=== PATIENT | female | born 1985 | race Caucasian/White ===

== ENCOUNTER 2023-03-17 14:50 | Outpatient (AMB) | payer MEDICAID, SELFPAY ==
--- NOTE | 2023-03-17 15:37 | MHC.OFFVIS ---
Intake Vital Signs 03/17/23 15:40 03/17/23 16:25 Height 5 ft Weight 145 lb BMI 28.3 BP 192/126 H 222/132 H Intake Visit Reasons: IUD check Intake Note: The patient agreed to use of a medical records manager during this encounter. Scribed for CARLINE Negro by Lorenza Underwood medical records manager, on 03/17/2023 at 4:00 pm EST Answering Service Agent: Answering Service Agent Present (Laura) Allergies No Known Allergies Allergy (Verified 03/17/23 15:37) HPI HPI Comments History of Present Illness Details She presents for IUD check. Reports after intercourse 2 weeks ago, she felt the IUD moved. Uncertain where IUD was inserted, seen at the [facility] for branch account executive care. Her partner states he can no longer feel the strings. Admits to pelvic pain after that episode. Took home HCG test, negative. Last annual 2 years ago at [facility] per patient. 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 Elevated BP today. Hx of HTN after COVID vaccine, was on meds for 6 months. [facility] Medical History Juvenile arthritis Asthma Surgical History H/O hemorrhoidectomy Family History Maternal Aunt Brain cancer Social History Alcohol intake: current Alcohol intake frequency: holidays/special occasions only Patient Tobacco Use Status: Current everyday Tobacco user Cigarettes Per Day: 10 Sexual orientation: Straight/Heterosexual Gender identity: Female Female Reproductive History Menstrual control method: progestin IUCD Total pregnancies: 4 Full term: 2 Number of Living Children: 2 Ab induced: 1 Ab spontaneous: 1 Review of Systems Const All systems reviewed & are unremarkable except as noted in HPI and below Reports pelvic pain Physical Exam Vital Signs: Last Vital Signs BP 222/132 H 03/17/23 16:25 BMI result Body Mass Index 28.3 Const General: cooperative, no acute distress, well developed and alert External Female Exam: normal external appearance Speculum Exam - Vagina: normal appearance of the vagina Speculum Exam - Cervix: normal appearance of the cervix (IUD strings visible. clear mucous at os) Bimanual exam- vagina & uterus: normal bimanual exam, uterine size normal, uterine shape normal and non-tender Bimanual Exam- Adnexa, other: normal adnexae, no masses and tender on the left Results AMB Test Urine AMB Test Urine Negative Last Edit by MARISOL Bass on 03/17/23 16:25 Results Reviewed Results Reviewed: Laboratory Last Values Tst Clinic Negative 03/17/23 16:21 Assessment & Plan Assessment & Plan (1) Surveillance for control, intrauterine device: Code(s): Z30.431 - Encounter for routine checking of intrauterine contraceptive device Plan: BV panel, GC/CT done today. Urine HCG done today. Will await results and treat accordingly. Follow up US results in person. [employer] records request from [facility]. Contact office with any questions or concerns. (2) Pelvic pain in female: Code(s): R10.2 - Pelvic and perineal pain (3) Elevated blood pressure reading: Code(s): R03.0 - Elevated blood-pressure reading, without diagnosis of hypertension Plan: Instructed to go to ED for further evaluation due to high blood pressure, concern for stroke risks, she was escorted by staff member via wheelchair. Orders: Orders AMB HCG Urine Test Today Z32.02 - Encounter for test, result negative US pelvic and transvaginal Today R10.2 - Pelvic and perineal pain, Z30.431 - Encounter for routine checking of intrauterine contraceptive device Bacterial Vaginosis Panel Today R10.2 - Pelvic and perineal pain CT NG by PCR Today R10.2 - Pelvic and perineal pain Pap Smear Today R10.2 - Pelvic and perineal pain Coding Level of Care Code Est Pt Level 3 (05460) Diagnoses Surveillance for control, intrauterine device Z30.431 Pelvic pain in female R10.2 Elevated blood pressure reading R03.0
[2023-03-17 15:40] VITALS: BP 192/126; BMI 28.3
[2023-03-17 16:25] VITALS: BP 222/132
== END 2023-03-17 14:51 | disposition home or self-care (01) ==
PROVIDERS: PCP Internal Medicine; Visit Provider Advanced Practice Midwife
DX: Z30.431 Encounter for routine checking of intrauterine contraceptive device (principal); R10.2 Pelvic and perineal pain; R03.0 Elevated blood-pressure reading, without diagnosis of hypertension; Z32.02 Encounter for pregnancy test, result negative
CPT/HCPCS: 99213

== ENCOUNTER 2023-03-17 14:50 | Outpatient (REF) | payer MEDICAID, SELFPAY | END 2023-03-17 14:51 | disposition home or self-care (01) | LOC: HO.LAB 14:50 | PROVIDERS: PCP Internal Medicine; Visit Provider Advanced Practice Midwife | DX: R10.2 Pelvic and perineal pain (principal); R03.0 Elevated blood-pressure reading, without diagnosis of hypertension; Z30.431 Encounter for routine checking of intrauterine contraceptive device; Z32.02 Encounter for pregnancy test, result negative | CPT/HCPCS: 0353U; 81025; 87480; 87510; 87624; 87660; 88142; 99212 ==

== ENCOUNTER 2023-03-17 16:21 | Outpatient (REF) | payer MEDICAID, SELFPAY ==
[2023-03-18 05:06] LABS: CT PCR NOT DETECTED (Not Detect.); NG PCR NOT DETECTED (Not Detect.)
[2023-03-18 14:11] LABS: BV Int Neg Control Negative (Negative); BV Int Pos Control Positive (Positive)
[2023-03-22 18:18] LABS: HPV mRNA E6/E7 rflx Not Detected (Not Detected)
== END 2023-03-17 16:22 | disposition home or self-care (01) ==
LOC: HO.LNP 16:21
PROVIDERS: Visit Provider Advanced Practice Midwife
DX: Z01.419 Encounter for gynecological examination (general) (routine) without abnormal findings (principal); R10.2 Pelvic and perineal pain; Z11.3 Encounter for screening for infections with a predominantly sexual mode of transmission
CPT/HCPCS: 0353U; 87480; 87510; 87624; 87660; 88142

== ENCOUNTER 2023-03-17 16:44 | Emergency (ER) | payer MEDICAID, SELFPAY ==
[2023-03-17] VITALS (8 sets, daily range): BP systolic 160–222; BP diastolic 99–145; PULSE 77–97; RESP 12–20; TEMP 36.7; O2SAT 96–99; BMI 28.1
--- NOTE | 2023-03-17 16:52 | ECG_ITS ---
Test Reason : HYPERTENSION Blood Pressure : / mmHG Vent. Rate : 094 BPM Atrial Rate : 094 BPM P-R Int : 174 ms QRS Dur : 090 ms QT Int : 350 ms P-R-T Axes : 050 003 026 degrees QTc Int : 437 ms Normal sinus rhythm Possible Left atrial enlargement Borderline ECG No previous ECGs available Referred By: Tayla Tellez Electronically Signed By:MARIANNE GRAHAM MD
--- NOTE | 2023-03-17 16:58 | ED.GENADULT ---
HPI - General Adult General Chief complaint: Recheck/Abnormal Lab/Rx Stated complaint: high blood pressure Time Seen by Provider: 03/17/23 16:46 Source: patient and family Mode of arrival: ambulatory Limitations: no limitations History of Present Illness HPI narrative: 37 yo female with PMH of HTN but related to a vaccine and only completed 6 months of HCTZ - has not been on BP meds in a year. She does admit to drinking a red bull today prior to going to OB office and she take 1 or sometimes 2 caffeine pills a day. Today she only took 1 it is 200mg. She has no symptoms but in OB office BP > 200 on multiple rechecks. She has no CP/SOB, headaches, n/v, vision changes. MD complaint: HTN Onset (ago): day(s) (unsure but noted today on check) Severity: moderate Relieving factors: none Exacerbating factors: none Associated symptoms: denies other symptoms Treatments prior to arrival: none Related Data Home Medications Medication Instructions Recorded Confirmed buprenorphine 4 mg-naloxone 1 mg 5 mg sublingual QAM 03/17/23 sublingual film (Suboxone) Previous Rx's Medication Instructions Recorded metoprolol succinate 25 mg 25 mg PO DAILY #30 tabs 03/17/23 tablet,extended release 24 hr (Toprol XL) Allergies Allergy/AdvReac Type Severity Reaction Status Date / Time No Known Allergies Allergy Verified 03/17/23 15:37 Review of Systems Review of Systems: Constitutional : No Fever, No Chills, No Fatigue ENT/Mouth : No sore throat, No Rhinorrhea Eyes: No Eye Pain, No Swelling, No Redness Cardiovascular : No Chest Pain, No SOB, No Dyspnea on Exertion Respiratory : No Cough, No Sputum Gastrointestinal : No Nausea, No Vomiting, No Diarrhea, No abdominal Pain Genitourinary : No Dysuria, No Urinary Frequency, No Hematuria, Musculoskeletal : No joint pain, No Myalgias, No Joint Swelling Skin : No Skin Lesions, No rash Neuro : No Weakness, No Numbness, No Dizziness, no Headache Psych : No Anxiety/Panic, No Depression Heme/Lymph: No Bruising, No Bleeding,No Lymphadenopathy Endocrine : No Polyuria, No Polydipsia All other systems reviewed and are negative [facility] Past Medical History Attestation statement: The following information was validated with the patient. Source: old records reviewed Medical History HTN (hypertension) Juvenile arthritis Asthma Surgical History H/O hemorrhoidectomy Family History Family History Maternal Aunt Brain cancer Social History Social History Alcohol intake: current Alcohol intake frequency: holidays/special occasions only Alcohol type: hard liquor Patient Tobacco Use Status: Current everyday Tobacco user Cigarettes Per Day: 10 Smoked in Last 30 Days: Yes Use of substances other than those prescribed or required for medical reasons: No Advance Directives: No Advance Directives Information Provided: No Patient : No Sexual orientation: Straight/Heterosexual Gender identity: Female Physical Exam ED Vital Signs: Vital Signs - 24 hr 03/17/23 16:48 03/17/23 17:14 03/17/23 17:16 Temperature 98.0 F Pulse Rate 97 77 83 Respiratory Rate 16 14 12 Blood Pressure 222/145 H 208/136 H 183/119 H Pulse Oximetry 97 99 97 Oxygen Delivery Method Room Air Room Air Room Air 03/17/23 17:19 03/17/23 17:35 03/17/23 18:07 Temperature Pulse Rate 79 83 88 Respiratory Rate 14 14 16 Blood Pressure 171/114 H 184/118 H 193/109 H Pulse Oximetry 97 96 97 Oxygen Delivery Method Room Air Room Air Room Air 03/17/23 18:31 Temperature Pulse Rate 78 Respiratory Rate 14 Blood Pressure 160/99 H Pulse Oximetry 97 Oxygen Delivery Method BMI result Body Mass Index 28.1 Appearance: Alert. Oriented X3. No acute distress. Eyes: Pupils equal, round and reactive to light. ENT: Pharynx normal. Neck: Normal inspection. Neck supple. CVS: tachycardic heart rate and rhythm. Pulses normal. Respiratory: No respiratory distress. Breath sounds normal. Abdomen: Soft and nontender. Skin: Skin warm and dry. Normal skin color. Normal skin turgor. Extremities: No lower extremity edema. No calf ttp Neuro: Oriented X 3. No motor deficit. No sensory deficit. Medications Administered Discontinued Medications Generic Name Dose Route Start Last Admin Trade Name Freq PRN Reason Stop Dose Admin Sodium Chloride 1,000 mls @ 999 mls/hr 03/17/23 17:00 03/17/23 18:14 Ns IV 03/17/23 18:00 Infused .Q1H1M ENEDELIA Infusion Labetalol HCl 10 mg 03/17/23 16:52 03/17/23 17:07 Labetalol Hcl 100 Mg/20 Ml Vial IVPUSH 03/17/23 16:53 10 mg ONCE ONE Administration Metoprolol Tartrate 25 mg 03/17/23 17:40 03/17/23 17:46 Metoprolol Tartrate 25 Mg Tablet PO 03/17/23 17:41 25 mg ONCE ONE Administration Protocol Medical Decision Making Medical Decision Making MDM Narrative: 37 yo female with prior HTN but no longer on medications here with c/o being sent from OB office for elevated HTN - > 200s consistently without CP/headaches stroke symptoms vision changes. She is taking too much caffeine a day but denies cocaine abuse. At this time labs, EKG and IVF ordered. Given degree of elevated BP I am going to order IV labetalol. She has no signs of end organ damage at this time. Differential Diagnosis Differential Diagnoses: The differential diagnosis associated with the presentation includes caffeine reaction, thyroid issue, denies cocaine abuse, uncontrolled HTN Admission/Observation Consideration of admission/observation: Escalation of care including admission/observation considered BP improved asymptomatic stable for DC Lab Data [facility] Lab Attestation statement: I reviewed the patient's lab results. 03/17/23 17:09 03/17/23 17:09 Labs: Lab Results 03/17/23 Range/Units 17:09 WBC 9.0 (4.8-10.8) X10*3/uL RBC 4.22 (4.20-5.50) X10*6/uL Hgb 14.0 (12.0-16.0) g/dl Hct 40.8 (37.0-47.0) % MCV 96.7 (80.0-98.0) fL MCH 33.2 H (27.0-33.0) pg MCHC 34.3 (31.0-35.0) g/dl RDW 12.4 (11.0-16.0) % Plt Count 203 (160-400) X10*3/uL MPV 9.9 (9.4-12.3) fL Immature Gran % (Auto) 0.2 (0.0-0.4) % Neut % (Auto) 51.8 (45-73) % Lymph % (Auto) 39.0 (20-40) % [place] % (Auto) 8.0 (2-11) % Eos % (Auto) 0.6 (0-4) % Baso % (Auto) 0.4 (0-2) % Lymph # (Auto) 3.5 (1.2-4.9) X10*3/uL [place] # (Auto) 0.7 (0.1-1.2) X10*3/uL Eos # (Auto) 0.1 (0.0-0.4) X10*3/uL Baso # (Auto) 0.0 (0.0-0.2) X10*3/uL Abs Immat Gran (auto) 0.02 (0.00-0.03) X10*3/uL Absolute Neuts (auto) 4.7 (2.0-8.3) x10*3/uL Absolute Nucleated RBC 0.000 (0.0-0.012) X10*3/uL Nucleated RBC % (auto) 0.0 (0.0-0.2) /100WBC Sodium 136 (135-145) mmol/L Potassium 3.4 (3.3-5.1) mmol/L Chloride 102 (96-108) mmol/L Carbon Dioxide 24 (22-29) mmol/L Anion Gap 13 (12-20) BUN 13 (9-16) mg/dL Creatinine 0.75 (0.5-1.4) mg/dL Estim Creat Clear Calc 86.6 Estimated GFR > 60 Random Glucose 97 (60-115) mg/dL Calcium 9.4 (8.4-10.2) mg/dL Magnesium 1.9 (1.6-2.6) mg/dL Total Bilirubin 0.6 (0.0-1.0) mg/dL Direct Bilirubin 0.2 (0.0-0.5) mg/dL AST 23 (5-31) U/L ALT 19 (0-31) U/L Alkaline Phosphatase 47 (39-117) U/L Total Protein 7.6 (6.5-8.0) g/dL Albumin 4.6 (3.5-5.0) g/dL TSH 1.38 (0.32-4.0) uIU/mL Beta HCG, Quant < 2 mIU/mL Independent Interpretation I performed an independent interpretation of an: EKG Interpretation: Rate: 94 Rhythm: NSR [place]: normal Normal P waves. Normal GABO. Normal QRS complex. ST T wave : on JANES, inverted t wave in III qTC: normal prior studies: no acute ischemia The study has been interpreted contemporaneously by me. . Independent Historian Clinical information obtained from an independent historian. History obtained from or confirmed by: Spouse External Record Review External record reviewed: Office record Prescription Management I considered prescription management with: Other Discharge Plan Discharge Clinical Impression: Hypertension, uncontrolled Patient Disposition: Home, Self-Care Instructions: Hypertension (ED) Additional Instructions: return for worsening symptoms such as dizziness, chest pain, loss of vision, swelling, numbness or any other concerns. follow up with your doctor for blood pressure check in 2 days. stop caffeine pills please. please monitor your blood pressure with your doctor closely once off the caffeine you may not need BP medications - hold BP medications if blood pressure less than 100 or HR less than 60. Prescriptions: New metoprolol succinate [Toprol XL] 25 mg tablet extended release 24 hr 25 mg PO DAILY Qty: 30 0RF No Action buprenorphine-naloxone [Suboxone] 4-1 mg film 5 mg sublingual QAM
[2023-03-17] MEDS: Labetalol HCL 100 MG/20 ML VIAL 10 MG IVPUSH (17:07)
[2023-03-17] MEDS: 0.9 % Sodium Chloride 1,000 ML 999 ML IV (17:09)
[2023-03-17 17:13] LABS: MANUAL DIFF FLAG NO
[2023-03-17 17:14] LABS: Basophils Percent Auto 0.4 % (0-2); Eosinophils Absolute Auto 0.1 X10*3/uL (0.0-0.4); Eosinophils Percent Auto 0.6 % (0-4); Hematocrit 40.8 % (37.0-47.0); Imm Gran Abs Auto 0.02 X10*3/uL (0.00-0.03); Imm Gran Pct Auto 0.2 % (0.0-0.4); Lymphocytes Absolute Auto 3.5 X10*3/uL (1.2-4.9); Mean Corpuscular HGB Conc 34.3 g/dl (31.0-35.0); Mean Corpuscular Hemoglobin 33.2 pg (27.0-33.0); Mean Corpuscular Volume 96.7 fL (80.0-98.0); Mean Platelet Volume 9.9 fL (9.4-12.3); Monocytes Absolute Auto 0.7 X10*3/uL (0.1-1.2); Neutrophils Absolute Auto 4.7 x10*3/uL (2.0-8.3); Neutrophils Percent Auto 51.8 % (45-73); Platelet Count 203 X10*3/uL (160-400); Red Blood Count 4.22 X10*6/uL (4.20-5.50); Red Cell Distribution Width 12.4 % (11.0-16.0)
--- NOTE | 2023-03-17 17:15 | PC.NURSE ---
this RN placed 20g IV in LAC. blood drawn, Labetolol given, fluids started. patient offers no complaints
[2023-03-17 17:37] LABS: Alanine Aminotransferase 19 U/L (0-31); Albumin Level 4.6 g/dL (3.5-5.0); Alkaline Phosphatase 47 U/L (39-117); Anion Gap 13 (12-20); Aspartate Amino Transferase 23 U/L (5-31); Bilirubin Direct 0.2 mg/dL (0.0-0.5); Bilirubin Total 0.6 mg/dL (0.0-1.0); Blood Urea Nitrogen 13 mg/dL (9-16); Calcium 9.4 mg/dL (8.4-10.2); Carbon Dioxide 24 mmol/L (22-29); Chloride 102 mmol/L (96-108); Creatinine Clr Calc Pharmacy 86.6; Estimated Glomerular Filt Rate > 60; Glucose Random 97 mg/dL (60-115); Magnesium 1.9 mg/dL (1.6-2.6); Potassium 3.4 mmol/L (3.3-5.1); Sodium 136 mmol/L (135-145); Total Protein 7.6 g/dL (6.5-8.0)
[2023-03-17] MEDS: Metoprolol Tartrate 25 MG TABLET PO (17:46)
[2023-03-17 17:51] LABS: HCG Quantitative < 2 mIU/mL; TSH reflex Free T4 1.38 uIU/mL (0.32-4.0)
== END 2023-03-17 18:44 | disposition home or self-care (01) ==
PROVIDERS: Emergency Provider Emergency Medicine; PCP Nurse Practitioner Primary Care
DX: R79.89 Other specified abnormal findings of blood chemistry (principal); I10 Essential (primary) hypertension; F17.200 Nicotine dependence, unspecified, uncomplicated; Z71.6 Tobacco abuse counseling; Z79.899 Other long term (current) drug therapy
CPT/HCPCS: 36415; 80048; 80076; 83735; 84443; 84702; 85025; 93005; 96361; 96374; 99284; 99285

== ENCOUNTER 2023-04-01 14:56 | Outpatient (REF) | payer MEDICAID, SELFPAY ==
--- NOTE | ~2023-04-01 | US_ITS ---
EXAMINATION: US PELVIS CLINICAL INFORMATION: Pelvic and perineal pain LMP: Spotting 2 days ago COMPARISON: None available. TECHNIQUE: Ultrasound of the pelvis is performed using both transabdominal and transvaginal transducers along with Doppler. Transvaginal imaging is performed due to inadequate visualization transabdominally. FINDINGS: Uterus: The uterus is anteverted and measures 7.1 x 3.5 x 4.2. The endometrium is obscured by the IUD. The IUD appears in proper position. Adnexa: Both ovaries are visualized. There is normal color flow to the adnexa. There is no ovarian torsion. There is no pelvic ascites or fluid collection. Both ovaries are normal in appearance. Right ovary measures 2.7 x 1.9 x 1.9 cm. Volume 5.1 mL. Left ovary measures 2.8 x 1.4 x 2.1 cm. Volume 4.3 mL. US/US pelvic and transvaginal IMPRESSION: 1. The IUD appears in proper position. 2. Normal ovaries.
== END 2023-04-01 14:57 | disposition home or self-care (01) ==
LOC: HO.US 14:56
PROVIDERS: PCP Nurse Practitioner Primary Care; Visit Provider Advanced Practice Midwife
DX: Z30.431 Encounter for routine checking of intrauterine contraceptive device (principal); R10.2 Pelvic and perineal pain
CPT/HCPCS: 76830; 76856

== ENCOUNTER 2024-11-29 13:59 | Outpatient (REF) | payer MEDICAID, SELFPAY ==
--- OUTSIDE RECORDS SUMMARY | 2024-11-29 14:08 | XMS_ITS ---
Author Organization [employer] Address [address] [place] [address] Care Team Providers Care Entertainment Centre Manager Name Role Phone Jennifer Lomeli NP Primary Care Provider [phone] CM Complex Status:Enrolled (Active) Start date:08/20/2024 Enrollment date:09/07/2024 Enrollment reason:ADT Feed Overview ED- Pt went to [facility] ED on 08/18/24. Case Team Name Relationship Phone Roxy Bird RN(Responsible Staff) Registered Nurse [phone] Continued Care and Services Coordination
[2024-11-29 17:13] LABS: MANUAL DIFF FLAG NO
[2024-11-29 17:27] LABS: Hematocrit 42.9 % (37.0-47.0); Hemoglobin 14.7 g/dl (12.0-16.0); Imm Gran Abs Auto 0.05 X10*3/uL (0.00-0.03); Imm Gran Pct Auto 0.6 % (0.0-0.4); Lymphocytes Absolute Auto 2.7 X10*3/uL (1.2-4.9); Mean Corpuscular HGB Conc 34.3 g/dl (31.0-35.0); Mean Corpuscular Hemoglobin 33.3 pg (27.0-33.0); Mean Corpuscular Volume 97.1 fL (80.0-98.0); NRBC Abs Auto 0.000 X10*3/uL (0.0-0.012); NRBC Pct Auto 0.0 /100WBC (0.0-0.2); Platelet Count 236 X10*3/uL (160-400); Red Blood Count 4.42 X10*6/uL (4.20-5.50); White Blood Count 8.9 X10*3/uL (4.8-10.8)
[2024-11-29 17:48] LABS: Alanine Aminotransferase 23 U/L (0-31); Albumin Level 4.5 g/dL (3.5-5.0); Alkaline Phosphatase 66 U/L (39-117); Anion Gap 10 (12-20); Aspartate Amino Transferase 27 U/L (5-31); Blood Urea Nitrogen 14 mg/dL (9-16); Calcium 9.1 mg/dL (8.4-10.2); Carbon Dioxide 26 mmol/L (22-29); Chloride 103 mmol/L (96-108); Cholesterol 205 mg/dL (<200); Estimated Glomerular Filt Rate > 60; HDL Cholesterol 65 mg/dL (>40); Potassium 4.0 mmol/L (3.3-5.1); Sodium 135 mmol/L (135-145); Total Protein 7.3 g/dL (6.5-8.0); Triglycerides 175 mg/dL (<150)
[2024-11-29 17:57] LABS: Reflex LDLD? No
[2024-11-30 08:08] LABS: ~Hepatitis A Antibody IgG 8.02 S/CO (0.00-0.99)
[2024-11-30 08:11] LABS: Syphilis Screen Nonreactive (Nonreactive)
[2024-11-30 08:38] LABS: HBS Num1 > 1000.00 mIU/mL (0-7.99)
[2024-11-30 08:39] LABS: HBc Num1 0.08 S/CO (0.00-0.79); HBsAGNum1 0.30 S/CO (0.00-0.99); HIV Num 1 0.06 S/CO (0.00-0.99); Hepatitis B Surface Antigen Negative (Negative); ~HepC Num1 0.08 S/CO (0.00-0.79); ~Hepatitis B Surface Antibody REACTIVE (Nonreactive); ~Hepatitis C Antibody Nonreactive (Nonreactive)
[2024-12-02 08:29] LABS: TS Negative Control Passed; TS Panel A 2; TS Panel B 0; TS Positive Control Passed; TSpotTB Negative (Negative)
== END 2024-11-29 14:00 | disposition home or self-care (01) ==
LOC: HO.HHCL 13:59
PROVIDERS: Internal Medicine; PCP Nurse Practitioner; Visit Provider Family Medicine
DX: I16.0 Hypertensive urgency (principal); R19.7 Diarrhea, unspecified; F11.20 Opioid dependence, uncomplicated
CPT/HCPCS: 36415; 80053; 80061; 82248; 84443; 85025; 86481; 86704; 86706; 86708; 86780; 86803; 87340; 87389

== ENCOUNTER 2024-12-31 14:03 | Outpatient (REF) | payer MEDICAID, SELFPAY ==
--- OUTSIDE RECORDS SUMMARY | 2024-12-31 14:32 | XMS_ITS ---
Author Organization [employer] Address [address] [place] [address] Care Team Providers Care Art Psychotherapist Name Role Phone Jennifer Lomeli NP Primary Care Provider [phone] CM Complex Status:Enrolled (Active) Start date:08/20/2024 Enrollment date:09/07/2024 Enrollment reason:ADT Feed Overview ED- Pt went to [facility] ED on 08/18/24. Case Team Name Relationship Phone Roxy Bird RN(Responsible Staff) Registered Nurse [phone] Continued Care and Services Coordination
== END 2024-12-31 14:04 | disposition home or self-care (01) ==
LOC: HO.HHCL 14:03
PROVIDERS: PCP Nurse Practitioner; Visit Provider Nurse Practitioner
DX: I10 Essential (primary) hypertension (principal)
CPT/HCPCS: 82570

== ENCOUNTER 2025-04-10 15:10 | Outpatient (REF) | payer MEDICAID, SELFPAY ==
--- OUTSIDE RECORDS SUMMARY | 2025-04-10 15:00 | XMS_ITS | Encounter Summary ---
Author Organization [employer] Address [address] [place] [address] 7 [place] [address] Care Team Providers Care Visual Training Aide Name Role Phone Jennifer Lomeli NP Primary Care Provider [phone] Reason for Visit * Reason Comments follow up Encounter Details Date Type Department Care Team (Latest Contact Info) Description 04/10/2025 3:00 PM EST Procedure Visit [facility] MEDICINE [address] [place] [address] Lennie Patel CNM [address] [place] [address] Encounter for IUD removal (Primary Dx); Cervical cancer screening; Irregular bleeding Social History Tobacco Use Types Packs/Day Years Used Date Smoking Tobacco: Every Day Cigarettes Smokeless Tobacco: Never Comments:Currently on chanti x Alcohol Use Standard Drinks/Week Comments Yes 0 (1 standard drink = 0.6 oz pur e alcohol) socially Alcohol Answer Date Recorded How often do you have a drink containing alcohol ? 2 12/31/2024 How many drinks containing a lcohol do you have on a typical day when you are drinking? 3 12/31/2024 How often do you have six or more drinks on one occasion? 1 12/31/2024 Depression Answer Date Recorded Patient Health Questionnaire-9 Score 6 09/07/2024 Patient Health Questionnaire-9 Score 6 09/07/2024 Last PHQ-9: Questionnaire Data Not on file 0 09/07/2024 Housing Stability Answer Date Recorded What is your housing situation today? I do not have housing (Staying with others, in a hotel, in a long-term, living outside on the street, on a beach, in a car, or in a park 01/03/[address] you li ve. Do you have problems with any of the following? None of the above 01/03/2025 Food Insecurity Answer Date Recorded Within the past 12 months, y ou worried that your food would run out before you got money to buy more: Sometimes True 2024 Within the past 12 months,th e food you bought just didn't last and you didn't have enough money to get more: Sometimes True 01/03/2025 Transportation Answer Date Recorded In the past 12 months, has l ack of transportation kept you from medical appts, meetings, work or from getting things needed for daily living? Yes, it has kept me from medical appointments or getting medications. 01/03/2025 Utilities Answer Date Recorded In the past 12 months, has t he electric, gas, oil or water company threatened to shut off services in your home? Yes 01/03/2025 Depression Answer Date Recorded Patient Health Questionnaire-2 Score 2 09/07/2024 Internet Access Answer Date Recorded Internet Access Q1 No 01/03/2025 Internet Access Q2 I cannot afford it 01/03/2025 Comments No Intention Date Recorded Not sure of desire to become (f inding) 04/10/2025 Sex and Gender Information Value Date Recorded Sex Assigned at Female 03/22/2022 10:20 AM EDT Legal Sex Female 10:20 AM EDT Gender Identity Female 03/22/2022 10:20 AM EDT Sexual Orientation Straight 03/22/2022 10 :20 AM EDT documented as of this encounter Last Filed Vital Signs Vital Sign Reading Time Taken Comments Blood Pressure 180/100 04/10/2025 3:11 PM EST Pulse 90 04/10/2025 3:11 PM EST Temperature 36.4 C (97.5 F) 04/10/2025 3:11 PM EST Respiratory Rate 18 04/10/2025 3:11 PM EST Oxygen Saturation 96% 04/10/2025 3:11 PM EST Inhaled Oxygen Concentration - - Weight 82.3 kg (181 lb 6.4 oz) 04/10/2025 3:11 P M EST Height - - Body Mass Index 35.43 01/03/2025 11:02 AM EDT documented in this encounter Progress Notes * DOMINICK ReisM - 04/10/2025 3:00 PM ESTAssociated Order(s): IUD Management Subjective Patient ID: Lorenza Cast is a 39 y.o. female who presents for IUD removal She thinks progestin IUD inserted about 10 y ago. Notes irregular menses with IUD. Would like IUD removed and to discuss other options for prevention. Would like to start oral contraceptivepill. Due for pap/HPV due to prior HPV positive pap. Agrees to pap today. 1 AMAB partner. Considering in the next year. Last sexually active about a week ago. Review of Systems Respiratory: Negative for shortness of breath. Cardiovascular: Negative for chest pain. Neurological: Negative for headaches. Objective BP (!) 180/100 (BP Location: Left arm, Patient Position: Sitting, BP Cuff Size: Adult) Pulse 90 Temp 97.5 ??F (36.4 ??C) (Oral) Resp 18 Wt 181 lb 6.4 oz (82.3 kg) SpO2 96% BMI 35.43 kg/m?? Physical Exam Planning Specialist present: declines business banking manager. Constitutional: Appearance: Normal appearance. Genitourinary: General: Normal vulva. Labia: Right: No rash, tenderness, lesion or injury. Left: No rash, tenderness, lesion or injury. Vagina: Normal. No signs of injury and foreign body. No vaginal discharge, erythema, tenderness, bleeding or lesions. Cervix: No cervical motion tenderness, discharge, friability, lesion, erythema, cervical bleeding or eversion. Uterus: Normal. Not enlarged and not tender. Adnexa: Right adnexa normal and left adnexa normal. Right: No mass, tenderness or fullness. Left: No mass, tenderness or fullness. Comments: IUD strings noted. Body of IUD nonpalpable Neurological: Mental Status: She is alert. Psychiatric: Mood and Affect: Mood normal. Behavior: Behavior normal. Assessment/Plan Diagnoses and all orders for this visit: Encounter for IUD removal IUD removed easily. See procedure note. Reviewed estrogen containing pill contraindicated with elevated BP and smoking. For NET progestin only pill as rx'd. Start today, backup x 7 days as precaution. Take at same time daily. Reviewed side effects and danger signs. Report if prolonged/frequent bleeding. Followup with PCP regarding hypertension. Seek care urgently if chest pain, SOB, MEDEROS or visual changes. Cervical cancer screening - Pap Smear Cotest today. Repeat 1 year if normal/HPV negative. Will contact with results and plan. Irregular bleeding - POCT , urine manually resulted test negative today. Likely due to IUD. Will observe. Consider ultrasound if persists on progestin only pill. Other orders - norethindrone (Micronor) 0.35 MG tablet; Take 1 tablet (0.35 mg) by mouth Once per day. IUD Management Date/Time: 04/10/2025 3:15 PM Performed by: Lennie Patel CNM Authorized by: Lennie Patel CNM Procedure: IUD removal Consent obtained by patient, parent, or legal power of claims attorney - including discussion of procedurerisks and benefits, patient questions answered, and patient education provided: yes Other reason for removal: device Strings visualized: yes IUD grasped by forceps: yes IUD removed: yes Removed without complications: yes IUD intact: yes documented in this encounter Plan of Treatment Upcoming Encounters Date Type Department Care Team (Late st Contact Info) Description 04/25/2025 3:15 PM EST Clinical Support [facility] MEDICINE [address] [place] [address] Edmar Brizuela, DARREL [address] [place] [address] 06/20/2025 2:15 PM EST Office Visit [facility] MEDICINE [address] [place] [address] Roxy Orantes MD [address] [place] [address] 07/18/2025 1:00 PM EST Office Visit [facility] OPTOMETRY [address] [place] [address] Lorenza Mariscal, OD [address] [place] [address] Scheduled Orders Name Type Priority Associated Diagnoses Orde r Schedule Pap Smear Pathology and Cytology Routine Cervical cancer screening Ordered: 04/10/2025 documented as of this encounter Goals Goal Patient Goal Type Associated Problems Recent Progress Patient-Stated? Author Keep your medical appointments Lifestyle On track( 025 2:14 PM EDT) Edmar Paul RN documented as of this encounter Procedures Procedure Name Priority Date/Time Associated Diagnosis Comments POCT , URINE Routine 04/10/2025 3:27 PM EST Irregular bleeding CO REMOVAL INTRAUTERINE DEVICE IUD Routine 04/10/2025 3:15 PM EST Encounter for IUD removal documented in this encounter Results * POCT , urine manually resulted (04/10/2025 3:27 PM EST) Preg Test, Ur Negative Negative, Indeterminate, None Detected, Invalid, Specimen unsatisfactory for evaluation, Weakly Positive, 2+ QC Media Lot # [id number] Lot# Expiration Date [id number] Urine 04/10/2025 3:27 PM EST Lennie Patel CNM POINT OF CARE TEST ENTER/ EDIT ORDERABLES Final Result * CO REMOVAL INTRAUTERINE DEVICE IUD (04/10/2025 3:15 PM EST) Narrative Lennie Patel CNM - 04/10/2025 3:15 PM EST Lennie Patel CNM 04/10/2025 3:55 PM IUD Management Date/Time: 04/10/2025 3:15 PM Performed by: Lennie Patel CNM Authorized by: Lennie Patel CNM Procedure: IUD removal Consent obtained by patient, parent, or legal power of claims attorney - including discussion of procedure risks and benefits, patient questions answered, and patient education provided: yes Other reason for removal: device Strings visualized: yes IUD grasped by forceps: yes IUD removed: yes Removed without complications: yes IUD intact: yes Lennie Patel CNM IN CLINIC/BEDSIDE ORDERAB LES Final Result documented in this encounter Visit Diagnoses Diagnosis Encounter for IUD removal- Primary Cervical cancer screening Screening for malignant neoplasm of the cervix Irregular bleeding Irregular menstrual cycle documented in this encounter Additional Health Concerns Assessment Noted Time PHQ-9 Depression Total Score: 6 09/08/19 25 1:36 PM EDT documented as of this encounter Care Teams Visual Training Aide Relationship Specialty Start Date End Date Jennifer Lomeli NP [address] [place] [address] PCP - General Family Medicine 09/28/23 documented as of this encounter
--- OUTSIDE RECORDS SUMMARY | 2025-04-15 15:00 | XMS_ITS | Encounter Summary ---
Author Organization [employer] Address [address] [facility] [address] [place] [address] Care Team Providers Care Cardboard Cutter Name Role Phone Jennifer Lomeli NP Primary Care Provider [phone] Encounter Details Date Type Department Care Team (Latest Contact Info) Description 04/10/2025 Travel Social History Tobacco Use Types Packs/Day Years [...] with others, in a hotel, in a alf, living outside on the street, on a [...] I cannot afford it 01/03/2025 Comments No Sex and Gender Information Value Date Recorded Sex Assigned at Female 03/22/2022 10:20 AM EDT Legal Sex Female 10:20 AM EDT Gender Identity Female 03/22/2022 10:20 AM EDT Sexual Orientation Straight 03/22/2022 10 :20 AM EDT documented as of this encounter Plan of Treatment Upcoming Encounters Date Type Department Care Team (Late st Contact Info) Description 04/25/2025 3:15 PM EST Clinical Support [facility] MEDICINE [address] [place] [address] Edmar Brizuela RN [address] [place] [address] 06/20/2025 2:15 PM EST Office Visit [facility] MEDICINE [address] [place] [address] Roxy Orantes MD 230 [place] [address] 07/18/2025 1:00 PM EST Office Visit [facility] OPTOMETRY [address] [place] [address] Lorenza Mariscal, ROSALIE [address] [place] [address] documented as of this encounter Goals Goal Patient Goal Type Associated Problems Recent Progress Patient-Stated? Author Keep your medical appointments Lifestyle On track( 025 2:14 PM EDT) Edmar Paul RN documented as of this encounter Visit Diagnoses Not on filedocumented in this encounter Additional Health Concerns Assessment Noted Time PHQ-9 Depression Total Score: 6 09/08/19 25 1:36 PM EDT documented as of this encounter Care Teams Cardboard Cutter Relationship Specialty Start Date End Date Jennifer Lomeli NP [address] [place] [address] PCP - General Family Medicine 09/28/23 documented as of this encounter
--- OUTSIDE RECORDS SUMMARY | 2025-04-15 15:00 | XMS_ITS | Encounter Summary ---
Author Organization [employer] Address [address] [place] [address] 7 [place] [address] Care Team Providers Care Body Hanger Name Role Phone Jennifer Lomeli NP Primary Care Provider [phone] Reason for Referral * Consultation (Routine) - Closed Specialty Diagnoses / Procedures Referred By Whitney brooke Referred To Contact Obstetrics and Gynecology Diagnoses IUD check up Jennifer Lomeli NP [address] [place] [address] Phone: tel: fax: [facility] [address] [place] [address] [address] Phone: tel: fax: Referral ID Status Reason Start Date Expiration Date V isits Requested Visits Authorized [id number] Closed Specialty Services Required 01/24/2025 01/24/2026 9 9 Encounter Details Date Type Department Care Team (Late st Contact Info) Description 01/24/2025 Orders Only [facility] MEDICINE [address] [place] [address] Jennifer Lomeli NP [address] [place] [address] IUD check up (Primary Dx) Social History Tobacco Use Types Packs/Day Years [...] with others, in a hotel, in a group home, living outside on the street, on a [...] Q2 I cannot afford it 01/03/2025 Comments Unknown Sex and Gender Information Value Date Recorded Sex Assigned at Female 03/22/2022 10:20 AM EDT Legal Sex Female 10:20 AM EDT Gender Identity Female 03/22/2022 10:20 AM EDT Sexual Orientation Straight 03/22/2022 10 :20 AM EDT documented as of this encounter Plan of Treatment Upcoming Encounters Date Type Department Care Team (Joan crabtree Contact Info) Description 04/25/2025 3:15 PM EST Clinical Support [facility] MEDICINE [address] [place] [address] Edmar Brizuela RN [address] [place] [address] 06/20/2025 2:15 PM EST Office Visit [facility] MEDICINE [address] [place] [address] Roxy Orantes MD [address] [place] [address] 07/18/2025 1:00 PM EST Office Visit [facility] OPTOMETRY [address] [place] [address] Lorenza Mariscal OD [address] [place] [address] Scheduled Referrals Name Type Priority Associated Diagnoses Order Schedule Referral to Obstetrics / Gynecology Outpatient Referral Routine IUD check up Expected: 01/24/2025 (Approximate), Expires: 01/24/2026 documented as of this encounter Goals Goal Patient Goal Type Associated Problems Recent Progress Patient-Stated? Author Keep your medical appointments Lifestyle On track( 025 2:14 PM EDT) No Edmar Brizuela RN documented as of this encounter Visit Diagnoses Diagnosis IUD check up- Primary documented in this encounter Additional Health Concerns Assessment Noted Time PHQ-9 Depression Total Score: 6 09/08/19 25 1:36 PM EDT documented as of this encounter Care Teams Body Hanger Relationship Specialty Start Date End Date Jennifer Lomeli NP [address] [place] [address] PCP - General Family Medicine 09/28/23 documented as of this encounter
--- OUTSIDE RECORDS SUMMARY | 2025-04-15 15:00 | XMS_ITS | Encounter Summary ---
Author Organization [employer] Address [address] [facility] 7t [place] [address] Care Team Providers Care Banquet Steward Name Role Phone Jennifer Lomeli NP Primary Care Provider [phone] Reason for Visit * Reason Onset Date Comments Nurse Triage 2024 Encounter Details Date Type Department Care Team ([facility] st Contact Info) Description 2024 Telephone [facility] MEDICINE [address] [place] [address] Jennifer Lomeli NP [address] [place] [address] Nurse Triage Social History Tobacco Use Types Packs/Day Years Used Date Smoking Tobacco: Every Day Cigarettes Smokeless Tobacco: Never Comments Unknown Sex and Gender Information Value Date Recorded Sex Assigned at Female 03/22/2022 10:20 AM EDT Legal Sex Female 10:20 AM EDT Gender Identity Female 03/22/2022 10:20 AM EDT Sexual Orientation Straight 03/22/2022 10 :20 AM EDT documented as of this encounter Miscellaneous Notes * Telephone Encounter - Joie Herrera RN - 2024 12:10 PM EST Triage call Pt reports vomiting and diarrhea occurred over the weekend. 05/05/24 and . Pt reports vomiting was uncontrolled , projectile and diarrhea was 4- 5x/daily. Pt reports no further vomiting and last episode of diarrhea was yesterday. Neg for fever. Pt is encouraged to drink 6-8 glasses daily due to fluid loss. Pt agrees to do that. Pt is calling to be seen by provider due to out of work 3 days. Pt is advised to come to [facility] today open till 8pm to be seen by provider and obtain excuse for work. Pt agrees with this disposition and plan. Insurance is verified as active prior to booking. Protocol Used: Vomiting (Adult) Protocol-Based Disposition: See in Office or Video Visit Today Video visit not offered Positive Triage Question: * Patient wants to be seen * All higher-acuity triage questions were negative Care Advice Discussed: * Drink Clear Fluids * Reasons To Call Back - Severe vomiting (6 or more times per day; vomiting everything) lasts more than 8 hours - Vomiting lasts more than 2 days (48 hours) - Vomit contains bile (green color) - Constant stomach pain lasting more than 2 hours - Signs of dehydration (such as no urination over 12 hours, very lightheaded) - You become worse * Telephone Encounter - Klever Dozier - 2024 12:00 PM EST Symptoms: Vomiting, Diarrhea Outcome: Schedule an urgent appointment (within 1 hour) or talk to a nurse or provider soon Reason: Caller denied all higher acuity questions documented in this encounter Plan of Treatment Upcoming Encounters Date Type Department Care Team (Late st Contact Info) Description 04/25/2025 3:15 PM EST Clinical Support [facility] MEDICINE [address] [place] [address] Edmar Brizuela, DARREL [address] [place] [address] 06/20/2025 2:15 PM EST Office Visit [facility] MEDICINE [address] [place] [address] Roxy Orantes MD [address] [place] [address] 07/18/2025 1:00 PM EST Office Visit [facility] OPTOMETRY [address] [place] [address] Lorenza Mariscal, OD [address] [place] [address] documented as of this encounter Visit Diagnoses Not on filedocumented in this encounter Care Teams Banquet Steward Relationship Specialty Start Date End Date Jennifer Lomeli NP [address] [place] [address] PCP - General Family Medicine 09/28/23 documented as of this encounter
--- OUTSIDE RECORDS SUMMARY | 2025-04-15 15:00 | XMS_ITS | Encounter Summary ---
Author Organization [employer] Address [address] [facility] 7t [place] [address] Care Team Providers Care Lump Room Supervisor Name Role Phone Jennifer Lomeli NP Primary Care Provider [phone] Encounter Details Date Type Department Care Team ([facility] st Contact Info) Description 01/04/2025 Abstract [facility] MEDICINE [address] [place] [address] Jennifer Lomeli NP [address] [place] [address] Social History Tobacco Use Types Packs/Day Years [...] with others, in a hotel, in a [place] [facility] [place], living outside on the street, on a [...] Description 04/25/2025 3:15 PM EST Clinical Support [facility] MEDICINE [address] [place] [address] Edmar Brizuela, DARREL [address] [place] [address] 06/20/2025 2:15 PM EST Office Visit [facility] MEDICINE [address] [place] [address] Roxy Orantes MD [address] [place] [address] 07/18/2025 1:00 PM EST Office Visit [facility] OPTOMETRY [address] [place] [address] Lorenza Mariscal, ROSALIE [address] [place] [address] documented as of this encounter Goals Goal [...] documented as of this encounter Care Teams Lump Room Supervisor Relationship Specialty Start Date End Date Jennifer Lomeli NP [address] [place] [address] PCP - General Family Medicine 09/28/23 documented as of this encounter
--- OUTSIDE RECORDS SUMMARY | 2025-04-15 15:00 | XMS_ITS | Encounter Summary ---
Author Organization [employer] Address [address] [facility] 7t [place] [address] Care Team Providers Care Portable Router Operator Name Role Phone Jennifer Lomeli NP Primary Care Provider [phone] Reason for Visit * Reason Comments Med Refill Encounter Details Date Type Department Care Team ([facility] Contact Info) Description 03/15/2025 Refill [facility] MEDICINE [address] [place], [place] [phone] Jennifer Lomeli NP [address] [place] [address] Depressive disorder; Neuropathy Social History Tobacco Use Types Packs/Day Years [...] with others, in a hotel, in a senior care, living outside on the street, on a [...] PM EST Clinical Support [facility] MEDICINE [address] [place] [address] Edmar Brizuela, DARREL [address] [place] [address] 06/20/2025 2:15 PM EST Office Visit [facility] MEDICINE [address] [place] [address] Roxy Orantes MD [address] [place] [address] 07/18/2025 1:00 PM EST Office Visit [facility] OPTOMETRY [address] [place] [address] Lorenza Mariscal, OD [address] [place] [address] documented as of this encounter Goals Goal Patient Goal Type Associated Problems Recent Progress Patient-Stated? Author Keep your medical appointments Lifestyle On track( 025 2:14 PM EDT) No Edmar Brizuela RN documented as of this encounter Visit Diagnoses Diagnosis Depressive disorder Depressive disorder, not elsewhere classified Neuropathy Mononeuritis of unspecified site documented in this encounter Additional Health Concerns Assessment Noted Time PHQ-9 Depression Total Score: 6 09/08/19 25 1:36 PM EDT documented as of this encounter Care Teams Portable Router Operator Relationship Specialty Start Date End Date Jennifer Lomeli NP [address] [place] [address] PCP - General Family Medicine 09/28/23 documented as of this encounter
--- OUTSIDE RECORDS SUMMARY | 2025-04-15 15:00 | XMS_ITS | Encounter Summary ---
Author Organization [employer] Address [address] [facility] 7 [place] [address] Care Team Providers Care Arboriculture Instructor Name Role Phone Jennifer Lomeli NP Primary Care Provider [phone] Reason for Visit * Reason Onset Date Comments Referral 01/23/2025 Encounter Details Date Type Department Care Team ([facility] Contact Info) Description 01/23/[address] [facility] MEDICINE [address] [place] [address] Jennifer Lomeli NP [address] [place] [address] Referral Social History Tobacco Use Types Packs/Day Years [...] with others, in a hotel, in a halfway, living outside on the street, on a [...] encounter Miscellaneous Notes * Telephone Encounter - Lori Rg RN - 01/23/2025 2:13 PM EDT Call returned to pt who states she is overdue for a PAP and would like to have her IUD removed. Pt requesting referral to [facility] [employer] [employer]. Reports previously discussed with pcp. Advised will request referralfrom pcp. RN asked if pt would like to r/s missed nurse visit for BP check. Pt states she missed appt becauseher mother in law just . Pt states she prefers afternoon appts and agrees to appt with Flakito brothers RN 01/31/25 at 1:30p. * Telephone Encounter - Klever Dozier - 01/23/2025 1:11 PM EDT Tc from pt requesting a referral for [facility]. If any questions please contact pt at [phone]. documented in this encounter Plan of Treatment Upcoming Encounters Date Type Department Care Team ([facility] st Contact Info) Description 04/25/2025 3:15 PM EST Clinical Support [facility] MEDICINE [address] [place] [address] Edmar Brizuela RN [address] [place] [address] 06/20/2025 2:15 PM EST Office Visit [facility] MEDICINE [address] [place] [address] Roxy Orantes MD [address] [place] [address] 07/18/2025 1:00 PM EST Office Visit [facility] OPTOMETRY [address] [place] [address] TarkaLorenza, OD [address] [place] [address] documented as of this encounter Goals Goal [...] documented as of this encounter Care Teams Arboriculture Instructor Relationship Specialty Start Date End Date Jennifer Lomeli NP [address] [place] [address] PCP - General Family Medicine 09/28/23 documented as of this encounter
--- OUTSIDE RECORDS SUMMARY | 2025-04-15 15:00 | XMS_ITS | Encounter Summary ---
Author Organization [employer] Address [address] [facility] 7 [place] [address] Care Team Providers Care Special Diet Cook Name Role Phone Jennifer Lomeli NP Primary Care Provider [phone] Reason for Visit * Reason Onset Date Comments Med Refill 04/15/2025 Encounter Details Date Type Department Care Team ([facility] st Contact Info) Description 04/15/2025 Refill [facility] [address] [place] [address] Roxy Orantes MD [address] [place] [address] Uncomplicated opioid dependence (CMS/HCC) ([facility]) Social History Tobacco Use Types Packs/Day Years [...] with others, in a hotel, in a assisted, living outside on the street, on a [...] Description 04/25/2025 3:15 PM EST Clinical Support [facility] [address] [place] [phone] Edmar Brizuela RN [address] [place] [address] 06/20/2025 2:15 PM EST Office Visit [facility] [address] [place] [phone] Roxy Orantes MD [address] [place] [address] 07/18/2025 1:00 PM EST Office Visit [facility] [address] [place] [phone] Lorenza Mariscal, OD [address] [place] [address] documented as of this encounter Goals Goal Patient Goal Type Associated Problems Recent Progress Patient-Stated? Author Keep your medical appointments Lifestyle On track( 025 2:14 PM EDT) Edmar Paul RN documented as of this encounter Visit Diagnoses Diagnosis Uncomplicated opioid dependence (CMS/HCC) (HCC) documented in this encounter Additional Health Concerns Assessment Noted Time PHQ-9 Depression Total Score: 6 09/08/19 25 1:36 PM EDT documented as of this encounter Care Teams Special Diet Cook Relationship Specialty Start Date End Date Jennifer Lomeli NP [address] [place] [address] PCP - General Family Medicine 09/28/23 documented as of this encounter
--- OUTSIDE RECORDS SUMMARY | 2025-04-15 15:00 | XMS_ITS | Clinical Summary ---
Author Organization [employer] Address [address] [facility] 7t [place] [address] Care Team Providers Care Almond Paste Molder Name Role Phone Jennifer Lomeli NP Primary Care Provider [phone] Allergies No known active allergies Medications hydroCHLOROthia zide (HYDRODiuril) 25 MG tabletIndicatio ns:Hypertension , unspecified type Take 1 tablet (25 mg) by mouth Once per day. 90 tablet 3 05/17/20 24 Active Blood Pressure Monitoring (Blood Pressure Cuff) miscIndications :Asymptomatic hypertensive urgency 1 kit if needed each day (blood pressure). 1 each 1 05/22/20 24 Active varenicline (Chantix) 0.5 MG tablet Take one tablet daily for 3 days, then one tablet BID for 3 days, then two tablets twice daily. Take with full glass of water. 60 tablet 11/30/19 25 Active varenicline (Chantix) 1 MG tablet Take 1 tablet (1 mg) by mouth 2 times daily. Start after finishing starter pack. Take with full glass of water. 60 tablet 3 11/30/19 25 Active loratadine (Claritin) 10 MG tablet Take 10 mg by mouth Once per day. Active nicotine polacrilex (Nicorette) 4 MG gumIndications: Tobacco dependence syndrome Chew 1 piece of gum, as directed, every 1-2 hours as needed for cravings. No more than 24 pieces in 24 hours. 110 each 5 01/01/20 25 Active metoprolol tartrate (Lopressor) 50 MG tabletIndicatio ns:Primary hypertension Take 1 tablet (50 mg) by mouth 2 times daily. 90 tablet 3 01/01/20 25 Active albuterol (Ventolin HFA) 108 (90 Base) MCG/ACT inhaler INHALE 2 PUFFS BY MOUTH EVERY 4 HOURS IF NEEDED 18 g 1 01/31/20 25 Active DULoxetine (Cymbalta) [address] Kraft ons:Depressive disorder,Neurop athy Take 1 capsule (20 mg) by mouth Once per day. Do not crush or chew. 30 capsule 1 03/15/20 25 025 Active norethindrone (Micronor) 0.35 MG tablet Take 1 tablet (0.35 mg) by mouth Once per day. 28 tablet 11 04/10/20 25 026 Active buprenorphine-n aloxone (Suboxone) 4-1 MG per sublingual filmIndications :Uncomplicated opioid dependence (CMS/HCC) (HCC) Place 1 Film under the tongue Once per day. 28 Film 1 04/15/20 25 026 Active buprenorphine-n aloxone (Suboxone) 4-1 MG per sublingual filmIndications :Uncomplicated opioid dependence (CMS/HCC) (HCC) Place 1 Film under the tongue Once per day. 28 Film 1 01/23/20 25 025 Discontinued(Re order (will not trigger notification to Pharmacy)) buprenorphine-n aloxone (Suboxone) 4-1 MG per sublingual filmIndications :Uncomplicated opioid dependence (CMS/HCC) (HCC) Place 1 Film under the tongue Once per day. 30 Film 03/26/20 25 025 Discontinued(Re order (will not trigger notification to Pharmacy)) Active Problems Problem Noted Date Diagnosed Date Primary hypertension 01/12/2025 Assessment & Plan (01/12/2025 9:44 PM EDT): - Uncontrolled hypertension - Increase metoprolol to 50 mg twice daily. Continue hydrochlorothiazide 25 mg once daily. - Monitor blood pressure at home twice daily for two weeks, ensuring proper technique. - Follow-up with nursing staff in two weeks. - Order urine albumin test to assess for proteinuria and possible renal involvement. Mixed hyperlipidemia 01/12/2025 Assessment & Plan (01/12/2025 9:52 PM EDT): Images from the original note were not included. - Hypercholesterolemia noted on labs completed 7/10/25; increased cardiovascular risk due to concomitant hypertension. - Advise dietary modification to reduce processed and high-salt foods. - Provide information on local [employer] and [employer] benefits to facilitate access to fresh produce. Asymptomatic hypertensive urgency 2024 Assessment & Plan (2024 7:21 PM EST): She's off meds, unclear if she has some opiate withdrawal due to recent episode of GI virus. Will start metoprolol as she tolerated it before + Hctz and fu with RN in 2-3w Get labs in about 1-2w and fu with new PCP in 1-2m She'll be out of work today and tomorrow, start med LESLY Check BP three times per week, advised re low salt diet, avoid smoking Diarrhea of presumed infectious origin Assessment & Plan (2024 7:21 PM EST): Resolved, she was out of work yesterday. Tobacco dependence syndrome 08/22/2014 Assessment & Plan (01/12/2025 9:54 PM EDT): -Has been prescribed chantix to assist with smoking cessation. Reviewed proper use of medication with regards to dose adjustment -nicotine gum provided at patient request Opioid dependence 11/15/2011 Assessment & Plan (2024 7:23 PM EST): Reportedly doing well on suboxone, she couldn't provide urine for Utox today. I advised to rs appt with suboxone provider Panic disorder without agoraphobia 10/07/2011 Depressive disorder 10/07/2011 Assessment & Plan (01/12/2025 9:48 PM EDT): - Depression and anxiety present; Wellbutrin previously effective, but duloxetine selected to address both mood and neuropathic symptoms. - Initiate duloxetine 20 mg once daily, with plan to titrate as tolerated. -Monitor response over one month. - Reassess at follow-up with plan for dose increase as necessary. Asthma 10/07/2011 Encounters Date Type Department Care Team Description 04/15/2025 Refill [facility] [address] [place] [address] Roxy Orantes MD Uncomplicated opioid dependence ([facility]) ([facility]) 04/10/2025 3:00 PM EST Procedure Visit [address] [address] Lennie Patel CNM Encounter for IUD removal (Primary Dx); Cervical cancer screening; Irregular bleeding 04/10/2025 Travel 04/09/2025 Telephone [facility] [address] [place] [address] Lennie Patel CNM chart prep 04/09/2025 Telephone [facility] [address] [place] [phone] Jennifer Lomeli NP CHARTPREP 03/26/2025 3:30 PM EST Clinical Support [address] [address] Edmar Brizuela, RN Opioid type dependence, continuous ([facility]) ([facility]) (Primary Dx) 03/26/2025 Travel 03/26/2025 Refill [facility] [address] [place] [phone] Roxy Orantes MD Uncomplicated opioid dependence ([facility]) ([facility]) 03/21/2025 Refill [facility] [address] [place] [address] Roxy Orantes MD Uncomplicated opioid dependence ([facility]) ([facility]) 03/15/2025 Refill [facility] [address] [place] [phone] Jennifer Lomeli NP Depressive disorder; Neuropathy 03/15/2025 Refill [facility] [address] [place] [phone] Jennifer Lomeli NP Depressive disorder; Neuropathy 03/15/2025 Telephone [facility] [address] [place] [address] Jennifer Lomeli NP Referral 03/15/2025 Telephone [facility] [address] [place] [phone] Lorenza Mariscal OD 01/28/2025 Refill [facility] [address] [place] [phone] Jennifer Lomeli NP 01/24/2025 Orders Only [address] [address] Jennifer Lomeli NP IUD check up (Primary Dx) 01/23/[address] [address] Jennifer Lomeli NP Referral 01/17/[address] [address] Roxy Orantes MD Uncomplicated opioid dependence ([facility]) 01/15/2025 Patient Outreach [facility] [address] [place], [place] [phone] Jennifer Lomeli NP Care Coordination (C3CM f/u call- case closure due to loss of contact) from Last 3 Months Immunizations Immunization Administration Dates Next Due DTP 05/22/1997, 6,09/20/1995,1995,11/19/1989 Hep A, Adult 10/22/2010,02/17/2010 Hep B, Adolescent or Pediatric 08/13/1997,1996,02/06/1997 Hep B, adult 03/25/2011,11/11/2010,02/17/2010 Hib (PRP-T) 09/19/1989 IPV 03/22/1998, 7,09/20/1995,1995,11/19/1989 Influenza injectable quadriv alent IIV4 with preservative 04/10/2015 Influenza injectable quadriv alent preservative free 04/13/2017 Influenza, IIV3, injectable 05/02/2014,0 01/28/2011,03/25/2003,2002,04/21/2000 Influenza, Split (incl. denisha fied surface antigen) 04/05/2013,06/01/2002,04/21/2000 MMR 02/06/1997,12/20/1996 TD (adult), 2 Lf tetanus tox oid, preservative free, adsorbed 08/17/2002,05/22/1995 Tdap 02/17/2010 Family History Medical History Relation Name Comments Heart disease Maternal Grandfather Heart disease Maternal Grandmother Hyperlipidemia Mother Hypertension Mother Stroke Mother Aortic dissection Mother's Sister Brain cancer Mother's Sister Relation Name Status Comments Maternal Grandfather Maternal Grandmother Mother Mother's Sister Social History Tobacco Use Types Packs/Day Years Used Date Smoking Tobacco: Every Day Cigarettes Smokeless Tobacco: Never Tobacco Cessation:Ready to Q uit: Yes; Counseling Given: Not Answered Comments:Currently on chantix Alcohol Use Standard Drinks/Week Comments Yes 0 [...] with others, in a hotel, in a custodial, living outside on the street, on a [...] Orientation Straight 03/22/2022 10 :20 AM EDT Last Filed Vital Signs Vital Sign Reading [...] oz) 04/10/2025 3:11 P M EST Height 152.4 cm (5') 01/03/2025 11:02 AM EDT Body Mass Index 35.43 01/03/2025 11:02 AM EDT Plan of Treatment Upcoming Encounters Date Type Department Care Team (Late st Contact Info) Description 04/25/2025 3:15 PM EST Clinical Support [facility] [address] [place] [phone] Edmar Brizuela, DARREL [address] [place] [address] 06/20/2025 2:15 PM EST Office Visit [facility] [address] [place] [phone] Roxy Orantes MD [address] [place] [address] 07/18/2025 1:00 PM EST Office Visit [facility] [address] [place] [address] Lorenza Mariscal, OD [address] [place] [address] Health Maintenance Due Date Last Done Comments HPV Vaccines (1 - 3-dose series) 2000 Pneumococcal Vaccine: Pediatrics (0 to 5 Years) and At-Risk Patients (6 to 49) Years (1 of 2 - PCV) 2004 DTaP/Tdap/Td Vaccines (6 - Td or Tdap) 02/18/2020 02/17/2010, 08/17/2002, 05/22/1997, Additional history exists Cervical Cancer Screening 03/18/2024 HPV/Cotest 03/18/2024 03/18/2023, 11/10/2017 Pap Smear 03/28/2024 03/28/2023, 03/18/2023 COVID-19 Vaccine ( season) 2025 09/25/2020 Influenza Vaccine (#1) 2025 7, 04/10/2015, 05/02/2014, Additional history exists Depression Screening 09/07/2025 09/07/2024, 09/08/19 25 Alcohol/Substance Use Screening 12/31/2025 12/31/2024 Disability Screening 12/31/2025 12/31/2024 SDOH Screening 01/03/2026 01/03/2025 Tobacco Screening 01/03/2026 01/03/2025 Family Planning (PISQ) 04/10/2026 04/10/2025 Lipid Panel 11/29/2029 11/29/2024, 10/13/2020 Zoster Vaccines (1 of 2) 2035 RSV Patients and Patients Aged 60 years or older (1 - 1-dose 75+ series) 2060 HIB Vaccines Completed 09/19/1989 IPV Vaccines Completed 03/22/1998, 04/24, 09/20/1995, Additional history exists Hepatitis A Vaccines Aged Out 10/22/2010, 02/18/20 10 No longer eligible based on patient's age to complete this topic Hepatitis B Vaccines Completed 03/25/2011, 11/11/2010, 02/17/2010, Additional history exists HIV Screening Completed 11/29/2024, 10/13/2020 Hepatitis C Screening Completed 11/29/2024, 021 Meningococcal B Vaccine Aged Out No l onger eligible based on patient's age to complete this topic Meningococcal Vaccine Aged Out No dayna dee eligible based on patient's age to complete this topic RSV under 20 months Aged Out No longe r eligible based on patient's age to complete this topic Rotavirus Vaccines Aged Out No longer eligible based on patient's age to complete this topic Goals Goal Patient Goal Type Associated Problems Recent Progress Patient-Stated? Author Keep your medical appointments Lifestyle On track( 025 2:14 PM EDT) No Edmar Brizuela RN Procedures Procedure Name Priority Date/Time Associated Diagnosis Comments POCT , URINE Routine 04/10/2025 3:27 PM EST Irregular bleeding OR REMOVAL INTRAUTERINE DEVICE IUD Routine 04/10/2025 3:15 PM EST Encounter for IUD removal POCT LAVINIA-14 URINE DRUG SCREEN Routine 03/26/2025 3:46 PM EST Opioid type dependence, continuous (CMS/HCC) (HCC) HEPATITIS C AB W/REFL TO HCV RNA, QN, PCR Routine 11/29/2024 2:14 PM EDT Uncomplicated opioid dependence (CMS/HCC) HIV 1/2 ANTIGEN/ANTIBODY, FOURTH GENERATION W/RFL Routine 11/29/2024 2:14 PM EDT Uncomplicated opioid dependence (CMS/HCC) LIPID PANEL WITH REFLEX TO DIRECT LDL Routine 11/29/2024 2:14 PM EDT Asymptomatic hypertensive urgency HM PAP/HPV Routine 03/18/2023 from Last 3 Months or Most Recently Relevant to Health Maintenance Results * POCT , urine manually resulted (04/10/2025 3:27 PM EST) Preg Test, Ur Negative Negative, Indeterminate, None Detected, Invalid, Specimen unsatisfactory for evaluation, Weakly Positive, 2+ QC Media Lot # [id number] Lot# Expiration Date [id number] Urine 04/10/2025 3:27 PM EST Lennie Patel CNM POINT OF CARE TEST ENTER/ EDIT ORDERABLES Final Result * OR REMOVAL INTRAUTERINE DEVICE IUD (04/10/2025 3:15 PM EST) Lennie Mane CNM - 04/10/2025 3:15 PM EST Lennie Patel CNM 04/10/2025 3:55 PM IUD Management Date/Time: 04/10/2025 3:15 PM Performed by: Lennie Patel CNM Authorized by: Lennie Patel CNM Procedure: IUD removal Consent obtained by patient, parent, or legal power of patent prosecution attorney - including discussion of procedure risks and benefits, patient questions answered, and patient education provided: yes Other reason for removal: device Strings visualized: yes IUD grasped by forceps: yes IUD removed: yes Removed without complications: yes IUD intact: yes Lennie Patel CNM IN CLINIC/BEDSIDE ORDERAB LES Final Result * (ABNORMAL) POCT LAVINIA-14 Urine Drug Screen (03/26/2025 3:46 PM EST) THC Negative Negative Cocaine Screen, Urine Negative Negative Opiate Screen, Urine Negative Negative Methamphetamine Screen Urine Negative Negative Amphetamine Screen, Urine Negative Negative Benzodiazepines Screen, Urine Negative Negative Barbiturate Screen, Urine Negative Negative Methadone Screen, Urine Negative Negative Buprenophine Screen, Urine Positive(A) Negative TCA, Urine Negative Negative MDMA Urine Negative Negative ng/mL Oxycodone Screen, Urine Negative Negative Phencyclidine (PCP), Urine Negative Negative Fentanyl, Urine Negative Negative Urine Urine specimen obtained by clean catch procedure / Unknown 03/26/2025 3:46 PM EST Diomedes Mcghee MD POINT OF CARE TEST ENTER/EDIT OR DERABLES Final Result * (ABNORMAL) Lipid Panel with Reflex to Direct LDL (11/29/2024 2:14 PM EDT) Triglycerides 175(H) <150 mg/dL [facility] Comment:Desirable Triglyceri de: less than 150 mg/dLBorderline High Triglyceride 150-199 mg/dLHigh Triglyceride: 200-499 mg/dLVery High Triglyceride: greater than or equal to 5OO mg/dL Cholesterol 205(H) <200 mg/dL [facility] Comment:Desirable Cholestero l: less than 200 mg/dLBorderline High Cholesterol: 200-239 mg/dLHigh Cholesterol: greater than 239 mg/dL LDL Cholesterol Calculated 105(H) <100 mg/dL [facility] Comment:Desirable LDL: less than 100 mg/dLNear Optimal/Above Optimal LDL: 110- 129 mg/dLBorderline High LDL: 130-159 mg/dLHigh LDL: 160-189 mg/dLVery High LDL: greater than or equal to 190 mg/dL HDL Cholesterol 65 >40 mg/dL [facility] Comment:Desirable HDL: great er than 40 mg/dL Note: This HDL assay may give artificially low results in patients with liver disease. Blood 11/29/2024 2:14 PM EDT 11/29/2024 5:10 PM EDT us Taylor Fisher MD LAB BLOOD ORDERABLES Fin al Result Performing Organization Address [facility] Co de Phone Number [facility] [address] [place] [phone] * Hepatitis C Antibody with Reflex to HCV, RNA, Quantitative, Real-Time PCR (11/29/2024 2:14 PM EDT) Hepatitis C Antibody Nonreactive Nonreactive [facility] Comment:Antibodies to HCV no t detected; does not exclude early acuteHCV infection. Blood Venous blood specimen / Unknown 11/29/2024 2:14 PM EDT 11/29/2024 5:10 PM EDT us Roxy Orantes MD LAB BLOOD ORDERABLES Final R esult Performing Organization Address [facility] Co de Phone Number [facility] [address] [place] [phone] * HIV-1/2 Antigen and Antibodies, Fourth Generation, with Reflexes (11/29/2024 2:14 PM EDT) HIV AB/AG Nonreactive Nonreactive [facility] Comment:HIV-1 p24 Ag and/or HIV-1/HIV-2 Ab not detected.A test result that is nonreactive does not exclude thepossibility of exposure to or infection with HIV-1 and/orHIV-2. Nonreactive results in this assay for individualswith prior exposure to HIV-1 and/or HIV-2 may be due toantigen and antibody levels that are below the limit ofdetection of this assay.The [employer] HIV Ag/Ab Combo assay result andsupplemental assay results should be interpreted inconjunction with the patient's clinical presentation,history and other laboratory results. If the results areinconsistent with clinical evidence, additional testing issuggested to confirm the result. Blood Venous blood specimen / Unknown 11/29/2024 2:14 PM EDT 11/29/2024 5:10 PM EDT Roxy Orantes MD LAB BLOOD ORDERABLES Final R esult [facility] [address] [place] [phone] * HM PAP/HPV (03/18/2023) Pap Smear 1. NILM 1. NILM HPV Not Detected Undetected, Indeterminat e, Quantitative , Not Detected Historical Provider HEALTH MAINTENANCE Edited Result - Final from Last 3 Months or Most Recently Relevant to Health Maintenance [facility] Care Teams Almond Paste Molder Relationship Specialty Start Date End Date Jennifer Lomeli NP [address] [place] [phone] PCP - General Family Medicine 09/28/23
== END 2025-04-10 15:11 | disposition home or self-care (01) ==
LOC: HO.LNP 15:10
PROVIDERS: Visit Provider Advanced Practice Midwife
DX: Z20.2 Contact with and (suspected) exposure to infections with a predominantly sexual mode of transmission (principal); Z12.4 Encounter for screening for malignant neoplasm of cervix
CPT/HCPCS: 87626; 88175